=== PATIENT | female | born 1930 | race Caucasian/White ===

== ENCOUNTER 2016-09-12 18:36 | Inpatient (IN) | payer OTHER, MEDICAID ==
--- NOTE | 2016-09-12 19:10 | RAD ---
EXAM: Bilateral Hip X-Ray INDICATION: Hip pain COMPARISION: No priors TECHNIQUE: Two views of the hips were obtained with hips in neutral and frog-leg position FINDINGS: There is a comminuted impacted fracture of the intertrochanteric region of the right femur. The shaf t of the femur is superiorly migrated creating an approximately 90 angulation between the neck and shaft of the femur. There is an intra medullary gayatri and dynamic screw in the proximal left femur. No left femoral fracture is identified. No dislocation. No acute pelvic fracture can be identified how ever the bones are osteopenic and evaluation is limited. IMPRESSION: 1: There is a comminuted intertrochanteric fracture of the right femur as described above. Reported By:
[2016-09-12 19:39] LABS: BASOPHILS # (AUTO) 0.1 X10^3/uL (0.0-0.1); BASOPHILS % (AUTO) 0.5 % (0.2-1.0); EOSINOPHILS % (AUTO) 0.1 % (0.9-2.9); HEMATOCRIT 33.9 % (36.0-47.0); HEMOGLOBIN 10.7 g/dL (12.0-16.0); LYMPHOCYTES # (AUTO) 1.1 X10^3/uL (1.3-2.9); LYMPHOCYTES % (AUTO) 6.2 % (21.0-51.0); MEAN CORPUSCULAR HEMOGLOBIN 29.3 pg (27.0-34.0); MEAN CORPUSCULAR HGB CONC 31.6 g/dL (33.0-35.0); MEAN CORPUSCULAR VOLUME 92.8 fL (80.0-100.0); MEAN PLATELET VOLUME 8.8 fL (7.4-11.0); MONOCYTES # (AUTO) 0.6 x10^3/uL (0.3-0.8); MONOCYTES % (AUTO) 3.6 % (0.0-13.0); NEUTROPHILS # (AUTO) 16.2 x10^3/uL (2.2-4.8); NEUTROPHILS % (AUTO) 89.6 % (42.0-75.0); PLATELET COUNT 219 X10^3/uL (150.0-450.0); RED BLOOD COUNT 3.65 X10^6/uL (3.5-5.4); RED CELL DISTRIBUTION WIDTH 13.8 % (11.6-16.5)
[2016-09-12] MEDS: MORPHINE SULFATE INJ 4 MG IVP PRN (19:40)
[2016-09-12 19:49] LABS: CALCIUM 8.4 mg/dL (8.5-10.1); CARBON DIOXIDE 30.1 mmol/L (21-32); COR CA(FOR HYPOALB) 9.2 mg/dL (8.5-10.1); CREATININE 1.25 mg/dL (0.55-1.02); TOTAL PROTEIN 6.8 g/dL (6.4-8.2)
[2016-09-12 20:19] LABS: BAND NEUTROPHILS % 4 % (0-10); PLATELET MORPHOLOGY COMMENT NORMAL (NORMAL)
--- NOTE | 2016-09-12 20:53 | RAD ---
HISTORY: Preop for hip surgery Study: Portable AP chest Comparison: None Findings: The heart is normal. The pulmonary vessels are normal. The lungs are mildly hyperinflated. No consol idation or effusion is seen. There is no pulmonary nodule or mass. There are postop changes along th e left shoulder. IMPRESSION: No acute cardiopulmonary abnormality seen. Reported By:
[2016-09-12] MEDS: NS 1000 ML 1,000 ML IV SCH (21:13)
[2016-09-12 22:50] LABS: BILIRUBIN,URINE NEGATIVE (NEGATIVE); BLOOD/HEMOGLOBIN,URINE 3+ (NEGATIVE); GLUCOSE, URINE NEGATIVE (NEGATIVE); KETONES,URINE NEGATIVE (NEGATIVE); LEUKOCYTE ESTERASE ,URINE 1+ (NEGATIVE); NITRITES,URINE POSITIVE (NEGATIVE); PROTEIN,URINE 1+ (NEGATIVE); UROBILINOGEN,URINE NORMAL (NORMAL)
[2016-09-12] MEDS: M.S. CONTIN 30 MG EXTENDED RELEASE PO SCH (22:56)
[2016-09-12 22:59] LABS: APPEARANCE,URINE CLOUDY (CLEAR); BACTERIA,URINE 2+ /HPF (NEGATIVE); COLOR,URINE YELLOW (YELLOW); RBC,URINE 0-3 /HPF (NEGATIVE); SQUAMOUS EPITHELIAL CELL,UR RARE /HPF (NEGATIVE)
[2016-09-12] MEDS ORDERED: HumuLIN R SC PRN (23:53)
[2016-09-13] MEDS: MORPHINE SULFATE INJ 4 MG IVP PRN ×3 (04:49→19:37)
[2016-09-13] MEDS ORDERED: [UNRECOGNIZED DRUG - OTHER] PO PRN (08:35)
[2016-09-13] MEDS ORDERED: [UNRECOGNIZED DRUG - OTHER] PO PRN (08:35)
[2016-09-13] MEDS ORDERED: TYLENOL SUPP 650 MG RECTAL PRN (08:35)
[2016-09-13] MEDS ORDERED: ZOFRAN TAB 4 MG PO PRN (08:35)
[2016-09-13] MEDS: M.S. CONTIN 30 MG EXTENDED RELEASE PO SCH ×2 (08:59→21:04)
[2016-09-13] MEDS ORDERED: [UNRECOGNIZED DRUG - OTHER] PO SCH (09:00)
[2016-09-13] MEDS ORDERED: [UNRECOGNIZED DRUG - OTHER] PO SCH (09:00)
[2016-09-13] MEDS ORDERED: [UNRECOGNIZED DRUG - OTHER] PO SCH (09:00)
[2016-09-13] MEDS ORDERED: PriLOSEC PO SCH (09:00)
--- NOTE | 2016-09-13 09:01 | DR.CONSULT ---
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, Joint Replacement, Ortho Surgery - Family History Family Medical History: Diabetes Mellitus, Cancer, [place], Coronary Artery Disease, Heart Failure, Sudden Cardiac , Hypertension - Social History Does patient currently use any type of tobacco product: No Have you used tobacco products in the last 12 months: No Type of Tobacco Use: None Alcohol Use: None Drug Use: None - Medications Home Medications: Acetaminophen [TYLENOL SUPPOSITORY 650 MG *] 1 supp.rect RECTAL Q4HR PRN [History Confirmed 09/12/16] Atropine Sulfate (Ophthalmic) [Atropine Sulfate] 1 drop SL NEEDED PRN [History Confirmed 09/12/16] Citalopram 20 mg Tab [CELEXA 20 MG *] 1 tab PO QAM 09/12/16 [History Confirmed 09/12/16] Diphenhydramine HCl [Benadryl Cap/Tab 25 mg] 1 tab PO Q6HR PRN 09/12/16 [ History Confirmed 09/12/16] Folic Acid [FOLIC ACID TAB 1 MG *] 1 tab PO QAM 09/12/16 [History Confirmed 11/22] Glipizide [Glipizide 5 mg] 0.5 tab PO QAM 09/12/16 [History Confirmed 09/12/16] Levothyroxine Sodium [SYNTHROID 50 mcg *] 1 tab PO QAM 09/12/16 [History Confirmed 09/12/16] Loperamide HCl 1 cap PO Q6HR PRN 09/12/16 [History Confirmed 09/12/16] Loratadine & Pseudoephedrine [Claritin-D 24 Hour 10-240 mg] 1 tab PO QAM [History Confirmed 09/12/16] Metformin HCl [Glucophage] 1 tab PO QAM 09/12/16 [History Confirmed 09/12/16] Morphine Sulfate [Morphine Sulfate ER] 1 tab PO BID 09/12/16 [History Confirmed 09/12/16] Morphine Sulfate [Morphine Sulfate ER] 30 mg PO Q4HR PRN 09/12/16 [History Confirmed 09/13/16] Omeprazole [PRILOSEC 20 MG *] 1 cap PO QAM 09/12/16 [History Confirmed 09/12/16] Ondansetron HCl 1 tab PO Q6HR PRN 09/12/16 [History Confirmed 09/12/16] Promethazine HCl 1 tab PO Q6H PRN 09/12/16 [History Confirmed 09/12/16] Sennosides-Docusate Sodium [Senna-S 8.6-50 mg] 1 tab PO BID 09/12/16 [History Confirmed 09/12/16] - Review of Systems Musculoskeletal: Other (rt hip pain) - Physical Exam Vital Signs: Temperature 98.2 F Pulse Rate [Left Brachial] 76 Respiratory Rate 18 Blood Pressure [Left Arm] 186/80 O2 Sat by Pulse Oximetry 93 Musculoskeletal: Right, Hip, Tender - Plan Plan: ORIF tomorrow AM. Pre op instructions as advised.
[2016-09-13] MEDS ORDERED: GLUCOPHAGE ONE (09:35)
[2016-09-13] MEDS ORDERED: MARCAINE 0.25% WITH EPI IJ ONE (09:36)
[2016-09-13] MEDS ORDERED: KETALAR ONE (09:36)
[2016-09-13] MEDS: GLUCOTROL PO SCH (09:38)
[2016-09-13] MEDS: GLUCOPHAGE PO SCH (09:38)
[2016-09-13] MEDS: FOLIC ACID TAB 1 MG PO SCH (09:38)
[2016-09-13] MEDS: LEVAQUIN PREMIX IV 500 MG 500 MG/100 ML BAG IV SCH (09:38)
[2016-09-13] MEDS: SYNTHROID 50 mcg TAB PO SCH (09:39)
[2016-09-13] MEDS: CELEXA PO SCH (09:46)
[2016-09-13] MEDS ORDERED: NAROPIN EPIDURAL 0.2% 400 MG, NS 250 ML IV 200 ML EPI PRN ×2 (12:00)
[2016-09-13] MEDS ORDERED: Q PUMP EPI ONE (12:00)
--- NOTE | 2016-09-13 12:56 | DR.H&P ---
H&P - History & Physical for Day of: H&P Date: 09/12/16 - Chief Complaint Chief Complaint: RIGHT HIP PAIN - Allergies Allergies/Adverse Reactions: Allergies Allergy/AdvReac Type Severity Reaction Status Date / Time Penicillins Allergy Unknown Verified 09/12/16 19:05 - History of Present Illness History of Present Illness: 86 WF DIRECT ADMIT FROM [facility] AFTER ACCIDENTAL FALL WITH ACUTE ONSET HIP PAIN. PT HAD RIGHT HIP FRACTURE. ADMIT FOR PAIN CONTROL AND ORTHO CONSULT. 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, Joint Replacement, Ortho Surgery - Family History Family Medical History: Diabetes Mellitus, Cancer, [place], Coronary Artery Disease, Heart Failure, Sudden Cardiac , Hypertension - Social History Does patient currently use any type of tobacco product: No Have you used tobacco products in the last 12 months: No Type of Tobacco Use: None Alcohol Use: None Drug Use: None - Medications Home Medications: Acetaminophen [TYLENOL SUPPOSITORY 650 MG *] 1 supp.rect RECTAL Q4HR PRN [History Confirmed 09/12/16] Atropine Sulfate (Ophthalmic) [Atropine Sulfate] 1 drop SL NEEDED PRN [History Confirmed 09/12/16] Citalopram 20 mg Tab [CELEXA 20 MG *] 1 tab PO QAM 09/12/16 [History Confirmed 09/12/16] Diphenhydramine HCl [Benadryl Cap/Tab 25 mg] 1 tab PO Q6HR PRN 09/12/16 [ History Confirmed 09/12/16] Folic Acid [FOLIC ACID TAB 1 MG *] 1 tab PO QAM 09/12/16 [History Confirmed 11/22] Glipizide [Glipizide 5 mg] 0.5 tab PO QAM 09/12/16 [History Confirmed 09/12/16] Levothyroxine Sodium [SYNTHROID 50 mcg *] 1 tab PO QAM 09/12/16 [History Confirmed 09/12/16] Loperamide HCl 1 cap PO Q6HR PRN 09/12/16 [History Confirmed 09/12/16] Loratadine & Pseudoephedrine [Claritin-D 24 Hour 10-240 mg] 1 tab PO QAM [History Confirmed 09/12/16] Metformin HCl [Glucophage] 1 tab PO QAM 09/12/16 [History Confirmed 09/12/16] Morphine Sulfate [Morphine Sulfate ER] 1 tab PO BID 09/12/16 [History Confirmed 09/12/16] Morphine Sulfate [Morphine Sulfate ER] 30 mg PO Q4HR PRN 09/12/16 [History Confirmed 09/13/16] Omeprazole [PRILOSEC 20 MG *] 1 cap PO QAM 09/12/16 [History Confirmed 09/12/16] Ondansetron HCl 1 tab PO Q6HR PRN 09/12/16 [History Confirmed 09/12/16] Promethazine HCl 1 tab PO Q6H PRN 09/12/16 [History Confirmed 09/12/16] Sennosides-Docusate Sodium [Senna-S 8.6-50 mg] 1 tab PO BID 09/12/16 [History Confirmed 09/12/16] - Review of Systems Constitutional: No Symptoms Reported Eyes: No Symptoms Reported ENT: No Symptoms Reported Respiratory: No Symptoms Reported Cardiovascular: No Symptoms Reported Gastrointestinal: No Symptoms Reported Genitourinary: No Symptoms Reported Musculoskeletal: Leg Pain, Other (RIGHT HIP PAIN) Skin: No Symptoms Reported Neurological: No Symptoms Reported - Physical Exam Vital Signs: Temperature 98.5 F Pulse Rate [Right Brachial] 80 Pulse Rate [Left Brachial] 76 Respiratory Rate 18 Blood Pressure [Right Arm] 119/112 Blood Pressure [Left Arm] 186/80 O2 Sat by Pulse Oximetry 94 Oriented: Normal Eyes: Normal Ear: Normal Nose: Normal Throat: Normal Respiratory: Clear Throughout Cardiovascular: Normal : Normal Auscultation: Bowel Sounds: Normal Palpation: Normal Tenderness: Normal Skin: Bruising (RIGHT THIGH, RIGHT HIP) Musculoskeletal: Hip (RIGHT THIGH) Psychiatric: Normal Mood Description: Calm Affect: Angry Speech Pattern: Clear - Assessment/Plan (1) Closed right hip fracture Qualifiers: Encounter type: E Fracture healing: F Status: Acute Plan: ORTHO CONSULT, PAIN CONTROL (2) CHF (congestive heart failure) Qualifiers: Congestive heart failure type: C Congestive heart failure chronicity: C Status: Chronic Plan: CXR ON ADMISSION, EKG. BP AND I & OS (3) Dementia Qualifiers: Dementia type: D Alzheimer's disease onset: A Dementia behavioral disturbance: D Status: Chronic Plan: STABLE (4) Diabetes mellitus, type II Qualifiers: Diabetes mellitus complication status: D Diabetes mellitus complication detail: D Diabetic retinopathy severity: D Proliferative retinopathy type: P Diabetes mellitus macular edema: D Diabetes mellitus correction insulin use : D Laterality: L Chronic kidney disease stage: C Status: Chronic (5) GERD (gastroesophageal reflux disease) Qualifiers: Esophagitis presence: E Status: Chronic Plan: PPI (6) Osteoarthritis Qualifiers: Osteoarthritis location: O Osteoarthritis type: O Spinal region: S Spinal osteoarthritis complication: S Laterality: L Status: Chronic Plan: PAIN CONTROL
--- NOTE | 2016-09-13 13:11 | PCM.PROG ---
Progress Note - Progress Note for Day of Date: 09/13/16 - Subjective Subjective: 86 F ADMITTED ON 09/12/16 WITH RIGHT HIP FRACTURE. DR THOMSON CONSULTING. CONTINUE PAIN CONTROL, SURGERY PLANNED FOR TUESDAY - Past Medical Family Social History Past Med/Fam/Surg Hx: No changes since H&P Allergies: Allergies Penicillins Allergy (Unknown, Verified 09/12/16 19:05) - Review of Systems ROS: No change since H&P - Vital Signs and I&O's Vital Signs: Temperature 98.5 F Pulse Rate [Right Brachial] 80 Pulse Rate [Left Brachial] 76 Respiratory Rate 18 Blood Pressure [Right Arm] 119/112 Blood Pressure [Left Arm] 186/80 O2 Sat by Pulse Oximetry 94 Intake and Output: Intake & Output 09/11/16 09/12/16 09/13/16 09/14/16 11:59 11:59 11:59 11:59 Intake Total 200 Output Total 475 Balance -275 - Physical Exam Oriented: Normal Eyes: Normal Ear: Normal Nose: Normal Throat: Normal Respiratory: Normal Cardiovascular: Normal : Normal Auscultation: Bowel Sounds: Normal Tenderness: Normal Skin: Bruising (RIGHT THIGH, RIGHT HIP) Musculoskeletal: Hip (RIGHT THIGH) Psychiatric: Normal Mood Description: Calm Affect: Angry Speech Pattern: Clear - Laboratory and Diagnostics Result Diagrams: 09/12/16 19:20 09/12/16 19:20 Labs: 09/12/16 22:41 Urine,Catheterized Urine Culture - Preliminary Laboratory WBC 18.0 X10^3/uL (3.6-10.0) H 09/12/16 19:20 RBC 3.65 X10^6/uL (3.5-5.4) 09/12/16 19:20 Hgb 10.7 g/dL (12.0-16.0) L 09/12/16 19:20 Hct 33.9 % (36.0-47.0) L 09/12/16 19:20 MCV 92.8 fL (80.0-100.0) 09/12/16 19:20 MCH 29.3 pg (27.0-34.0) 09/12/16 19:20 MCHC 31.6 g/dL (33.0-35.0) L 09/12/16 19:20 RDW 13.8 % (11.6-16.5) 09/12/16 19:20 Plt Count 219 X10^3/uL (150.0-450.0) 09/12/16 19:20 Plt Count Comment Adequate (ADEQUATE) 09/12/16 19:20 MPV 8.8 fL (7.4-11.0) 09/12/16 19:20 Neut % 89.6 % (42.0-75.0) H 09/12/16 19:20 Lymph % 6.2 % (21.0-51.0) L 09/12/16 19:20 [place] % 3.6 % (0.0-13.0) 09/12/16 19:20 Eos % 0.1 % (0.9-2.9) L 09/12/16 19:20 Baso % 0.5 % (0.2-1.0) 09/12/16 19:20 Neut # 16.2 x10^3/uL (2.2-4.8) H 09/12/16 19:20 Lymph # 1.1 X10^3/uL (1.3-2.9) L 09/12/16 19:20 [place] # 0.6 x10^3/uL (0.3-0.8) 09/12/16 19:20 Eos # 0.0 x10^3/uL (0.0-0.2) 09/12/16 19:20 Baso # 0.1 X10^3/uL (0.0-0.1) 09/12/16 19:20 Absolute Nucleated RBC 0.0 /100WBC 09/12/16 19:20 Total Counted 100 09/12/16 19:20 Neutrophils % (Manual) 86 % (39-76) H 09/12/16 19:20 Band Neutrophils % 4 % (0-10) 09/12/16 19:20 Lymphocytes % (Manual) 7 % (13-43) L 09/12/16 19:20 Monocytes % (Manual) 2 % (4-9) L 09/12/16 19:20 Eosinophils % (Manual) 1 % (0-6) 09/12/16 19:20 Plt Morphology Comment Normal (NORMAL) 09/12/16 19:20 RBC Morphology Normal (NORMAL) 09/12/16 19:20 INR Target Range - 09/12/16 19:20 INR 0.99 (0.8-1.3) 09/12/16 19:20 PTT 28.5 SECONDS (22.9-36.5) 09/12/16 19:20 PTT Comment - 09/12/16 19:20 Sodium 142 mmol/L (136-145) 09/12/16 19:20 Corrected Sodium 143 mmol/L (136-145) 09/12/16 19:20 Potassium 4.7 mmol/L (3.5-5.1) 09/12/16 19:20 Chloride 104 mmol/L (98-107) 09/12/16 19:20 Carbon Dioxide 30.1 mmol/L (21-32) 09/12/16 19:20 BUN 15 mg/dL (7-18) 09/12/16 19:20 Creatinine 1.25 mg/dL (0.55-1.02) H 09/12/16 19:20 Est GFR (MDRD) Af Amer 52 (>60) L 09/12/16 19:20 Est GFR (MDRD) Non-Af 43 (>60) L 09/12/16 19:20 Glucose 154 mg/dL (65-99) H 09/12/16 19:20 Calcium 8.4 mg/dL (8.5-10.1) L 09/12/16 19:20 Corrected Calcium 9.2 mg/dL (8.5-10.1) 09/12/16 19:20 Total Bilirubin 0.20 mg/dL (0.2-1.0) 09/12/16 19:20 AST 16 Units/L (15-37) 09/12/16 19:20 ALT 14 Units/L (12-78) 09/12/16 19:20 Alkaline Phosphatase 109 Units/L (46-116) 09/12/16 19:20 Total Protein 6.8 g/dL (6.4-8.2) 09/12/16 19:20 Albumin 3.0 g/dL (3.4-5.0) L 09/12/16 19:20 Globulin 3.8 g/dL (2.5-4.5) 09/12/16 19:20 Albumin/Globulin Ratio 0.8 Ratio (1.1-2.1) L 09/12/16 19:20 Specimen Type Catherized urine 09/12/16 22:41 Urine Color Yellow (YELLOW) 09/12/16 22:41 Urine Appearance Cloudy (CLEAR) 09/12/16 22:41 Urine pH 7.0 (5.0 - 8.0) 09/12/16 22:41 Ur Specific [place] 1.010 (1.000-1.030) 09/12/16 22:41 Urine Protein 1+ (NEGATIVE) 09/12/16 22:41 Urine Glucose (UA) Negative (NEGATIVE) 09/12/16 22:41 Urine Ketones Negative (NEGATIVE) 09/12/16 22:41 Urine Occult Blood 3+ (NEGATIVE) 09/12/16 22:41 Urine Nitrite Positive (NEGATIVE) 09/12/16 22:41 Urine Bilirubin Negative (NEGATIVE) 09/12/16 22:41 Urine Urobilinogen Normal (NORMAL) 09/12/16 22:41 Ur Leukocyte Esterase 1+ (NEGATIVE) 09/12/16 22:41 Urine RBC 0-3 /HPF (NEGATIVE) 09/12/16 22:41 Urine WBC 6-8 /HPF (NEGATIVE) 09/12/16 22:41 Ur Squamous Epith Cells Rare /HPF (NEGATIVE) 09/12/16 22:41 Urine Bacteria 2+ /HPF (NEGATIVE) 09/12/16 22:41 Ur Culture Indicated? Yes/culture set up 09/12/16 22:41 Blood Type B POSITIVE 09/12/16 19:45 Antibody Screen Negative 09/12/16 19:45 Crossmatch See Detail 09/12/16 19:45 - Plan (1) Closed right hip fracture Status: Acute Qualifiers: Encounter type: E Fracture healing: F Plan: ORTHO CONSULT, PAIN CONTROL (2) CHF (congestive heart failure) Status: Chronic Qualifiers: Congestive heart failure type: C Congestive heart failure chronicity: C Plan: CXR ON ADMISSION, EKG. 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
[2016-09-13] MEDS: PROTONIX INJ 40 MG VIAL IVP SCH (15:20)
[2016-09-13] MEDS ORDERED: NS 250 ML IV 250 ML IV ONE (15:59)
[2016-09-13] MEDS: SENOKOT PO SCH (21:03)
[2016-09-13] MEDS: COLACE CAP 100 MG PO SCH (21:03)
[2016-09-13] MEDS: SNACK - Diabetic Appropriate PO SCH (21:05)
[2016-09-13] MEDS: NS 1000 ML 1,000 ML IV SCH (21:06)
[2016-09-14] MEDS: MORPHINE SULFATE INJ 4 MG IVP PRN ×3 (04:18→17:05)
[2016-09-14] MEDS: NS 1000 ML 1,000 ML IV SCH ×2 (04:21→21:43)
[2016-09-14 05:45] LABS: ALANINE AMINOTRANSFERASE 14 Units/L (12-78); ALBUMIN 2.5 g/dL (3.4-5.0); ALKALINE PHOSPHATASE 88 Units/L (46-116); ASPARTATE AMINO TRANSFERASE 15 Units/L (15-37); BLOOD UREA NITROGEN 17 mg/dL (7-18); CALCIUM 8.2 mg/dL (8.5-10.1); CARBON DIOXIDE 27.2 mmol/L (21-32); CHLORIDE 106 mmol/L (98-107); COR CA(FOR HYPOALB) 9.4 mg/dL (8.5-10.1); CREATININE 1.08 mg/dL (0.55-1.02); GLUCOSE 96 mg/dL (65-99); SODIUM 141 mmol/L (136-145); eGFR BLACK RACES > 60 (>60); eGFR NON BLACK RACES 51 (>60)
[2016-09-14 06:14] LABS: BASOPHILS % (AUTO) 0.2 % (0.2-1.0); EOSINOPHILS % (AUTO) 0.1 % (0.9-2.9); HEMATOCRIT 31.5 % (36.0-47.0); HEMOGLOBIN 10.3 g/dL (12.0-16.0); LYMPHOCYTES # (AUTO) 2.2 X10^3/uL (1.3-2.9); MEAN CORPUSCULAR HEMOGLOBIN 29.4 pg (27.0-34.0); MEAN CORPUSCULAR HGB CONC 32.6 g/dL (33.0-35.0); MEAN CORPUSCULAR VOLUME 90.2 fL (80.0-100.0); MEAN PLATELET VOLUME 7.8 fL (7.4-11.0); MONOCYTES # (AUTO) 1.3 x10^3/uL (0.3-0.8); MONOCYTES % (AUTO) 10.6 % (0.0-13.0); NEUTROPHILS # (AUTO) 8.7 x10^3/uL (2.2-4.8); NEUTROPHILS % (AUTO) 71.1 % (42.0-75.0); PLATELET COUNT 209 X10^3/uL (150.0-450.0); RED BLOOD COUNT 3.49 X10^6/uL (3.5-5.4); RED CELL DISTRIBUTION WIDTH 14.1 % (11.6-16.5); WHITE BLOOD COUNT 12.2 X10^3/uL (3.6-10.0)
[2016-09-14] MEDS ORDERED: BACTROBAN OINT ONE (07:30)
[2016-09-14] MEDS ORDERED: NS 50 ML IV + SPIKE MINIBAG* 50 ML IV ONE (07:42)
[2016-09-14] MEDS ORDERED: ANCEF VIAL 1 GM ONE (07:42)
[2016-09-14] MEDS ORDERED: LR 1000 ML IV 1,000 ML IV ONE (07:42)
[2016-09-14] MEDS ORDERED: FENTANYL INJ 250 mcg ONE (08:06)
[2016-09-14] MEDS ORDERED: NS IRRIGATION 1000 ML 1,000 ML with BACITRACIN VIAL 50,000 UNT IR ONE ×2 (09:15)
[2016-09-14 09:39] VITALS: BMI 16.2
[2016-09-14] MEDS ORDERED: BENADRYL INJ 50 MG VIAL IVP PRN (10:32)
[2016-09-14] MEDS ORDERED: PHENERGAN INJ 25 MG IVP PRN (10:32)
[2016-09-14] MEDS ORDERED: REGLAN INJ 10 MG VIAL IVP PRN (10:32)
[2016-09-14] MEDS ORDERED: ZOFRAN INJ 4 MG VIAL IVP PRN (10:32)
[2016-09-14] MEDS ORDERED: APRESOLINE INJ 20 MG VIAL IVP ONE ×2 (10:46→13:09)
[2016-09-14] MEDS ORDERED: APRESOLINE INJ 20 MG VIAL ONE (10:52)
[2016-09-14] MEDS: DILAUDID INJ IVP PRN ×5 (11:20→11:45)
[2016-09-14] MEDS ORDERED: DILAUDID INJ ONE (11:21)
--- NOTE | 2016-09-14 12:03 | PCM.PROG ---
Progress Note - Progress Note for Day of Date: 09/14/16 - Subjective Subjective: 86 F ADMITTED ON 09/12/16 WITH RIGHT HIP FRACTURE. DR THOMSON CONSULTING. CONTINUE PAIN CONTROL, SURGERY PLANNED THIS MORNING. PT NPO - Past Medical Family Social History Past Med/Fam/Surg Hx: No changes since H&P Allergies: Allergies Penicillins Allergy (Unknown, Verified 09/12/16 19:05) - Review of Systems ROS: No change since H&P - Vital Signs and I&O's Vital Signs: Temperature 97.9 F Pulse Rate [Right Brachial] 70 Pulse Rate [Left Brachial] 64 Pulse Rate 73 Respiratory Rate 17 Blood Pressure [Right Arm] 119/112 Blood Pressure [Left Arm] 188/74 Blood Pressure 188/80 O2 Sat by Pulse Oximetry 99 Intake and Output: Intake & Output 09/12/16 09/13/16 09/14/16 09/15/16 11:59 11:59 11:59 11:59 Intake Total 200 1248 Output Total 475 2400 Balance -275 -1152 - Physical Exam Oriented: Normal Eyes: Normal Ear: Normal Nose: Normal Throat: Normal Respiratory: Normal Cardiovascular: Normal : Normal Auscultation: Bowel Sounds: Normal Tenderness: Normal Skin: Bruising (RIGHT THIGH, RIGHT HIP) Musculoskeletal: Hip (RIGHT THIGH) Psychiatric: Normal Mood Description: Calm Affect: Angry Speech Pattern: Clear, Appropriate - Laboratory and Diagnostics Result Diagrams: 09/14/16 04:37 09/14/16 04:37 Labs: 09/12/16 22:41 Urine,Catheterized Urine Culture - Preliminary Laboratory WBC 12.2 X10^3/uL (3.6-10.0) H 09/14/16 04:37 RBC 3.49 X10^6/uL (3.5-5.4) L 09/14/16 04:37 Hgb 10.3 g/dL (12.0-16.0) L 09/14/16 04:37 Hct 31.5 % (36.0-47.0) L 09/14/16 04:37 MCV 90.2 fL (80.0-100.0) 09/14/16 04:37 MCH 29.4 pg (27.0-34.0) 09/14/16 04:37 MCHC 32.6 g/dL (33.0-35.0) L 09/14/16 04:37 RDW 14.1 % (11.6-16.5) 09/14/16 04:37 Plt Count 209 X10^3/uL (150.0-450.0) 09/14/16 04:37 Plt Count Comment Adequate (ADEQUATE) 09/12/16 19:20 MPV 7.8 fL (7.4-11.0) 09/14/16 04:37 Neut % 71.1 % (42.0-75.0) 09/14/16 04:37 Lymph % 18.0 % (21.0-51.0) L 09/14/16 04:37 [place] % 10.6 % (0.0-13.0) 09/14/16 04:37 Eos % 0.1 % (0.9-2.9) L 09/14/16 04:37 Baso % 0.2 % (0.2-1.0) 09/14/16 04:37 Neut # 8.7 x10^3/uL (2.2-4.8) H 09/14/16 04:37 Lymph # 2.2 X10^3/uL (1.3-2.9) 09/14/16 04:37 [place] # 1.3 x10^3/uL (0.3-0.8) H 09/14/16 04:37 Eos # 0.0 x10^3/uL (0.0-0.2) 09/14/16 04:37 Baso # 0.0 X10^3/uL (0.0-0.1) 09/14/16 04:37 Absolute Nucleated RBC 0.0 /100WBC 09/14/16 04:37 Total Counted 100 09/12/16 19:20 Neutrophils % (Manual) 86 % (39-76) H 09/12/16 19:20 Band Neutrophils % 4 % (0-10) 09/12/16 19:20 Lymphocytes % (Manual) 7 % (13-43) L 09/12/16 19:20 Monocytes % (Manual) 2 % (4-9) L 09/12/16 19:20 Eosinophils % (Manual) 1 % (0-6) 09/12/16 19:20 Plt Morphology Comment Normal (NORMAL) 09/12/16 19:20 RBC Morphology Normal (NORMAL) 09/12/16 19:20 INR Target Range - 09/12/16 19:20 INR 0.99 (0.8-1.3) 09/12/16 19:20 PTT 28.5 SECONDS (22.9-36.5) 09/12/16 19:20 PTT Comment - 09/12/16 19:20 Sodium 141 mmol/L (136-145) 09/14/16 04:37 Corrected Sodium TNP 09/14/16 04:37 Potassium 4.5 mmol/L (3.5-5.1) 09/14/16 04:37 Chloride 106 mmol/L (98-107) 09/14/16 04:37 Carbon Dioxide 27.2 mmol/L (21-32) 09/14/16 04:37 BUN 17 mg/dL (7-18) 09/14/16 04:37 Creatinine 1.08 mg/dL (0.55-1.02) H 09/14/16 04:37 Est GFR (MDRD) Af Amer > 60 (>60) 09/14/16 04:37 Est GFR (MDRD) Non-Af 51 (>60) L 09/14/16 04:37 Glucose 96 mg/dL (65-99) 09/14/16 04:37 Calcium 8.2 mg/dL (8.5-10.1) L 09/14/16 04:37 Corrected Calcium 9.4 mg/dL (8.5-10.1) 09/14/16 04:37 Total Bilirubin 0.70 mg/dL (0.2-1.0) 09/14/16 04:37 AST 15 Units/L (15-37) 09/14/16 04:37 ALT 14 Units/L (12-78) 09/14/16 04:37 Alkaline Phosphatase 88 Units/L (46-116) 09/14/16 04:37 Total Protein 6.0 g/dL (6.4-8.2) L 09/14/16 04:37 Albumin 2.5 g/dL (3.4-5.0) L 09/14/16 04:37 Globulin 3.5 g/dL (2.5-4.5) 09/14/16 04:37 Albumin/Globulin Ratio 0.7 Ratio (1.1-2.1) L 09/14/16 04:37 Specimen Type Catherized urine 09/12/16 22:41 Urine Color Yellow (YELLOW) 09/12/16 22:41 Urine Appearance Cloudy (CLEAR) 09/12/16 22:41 Urine pH 7.0 (5.0 - 8.0) 09/12/16 22:41 Ur Specific [place] 1.010 (1.000-1.030) 09/12/16 22:41 Urine Protein 1+ (NEGATIVE) 09/12/16 22:41 Urine Glucose (UA) Negative (NEGATIVE) 09/12/16 22:41 Urine Ketones Negative (NEGATIVE) 09/12/16 22:41 Urine Occult Blood 3+ (NEGATIVE) 09/12/16 22:41 Urine Nitrite Positive (NEGATIVE) 09/12/16 22:41 Urine Bilirubin Negative (NEGATIVE) 09/12/16 22:41 Urine Urobilinogen Normal (NORMAL) 09/12/16 22:41 Ur Leukocyte Esterase 1+ (NEGATIVE) 09/12/16 22:41 Urine RBC 0-3 /HPF (NEGATIVE) 09/12/16 22:41 Urine WBC 6-8 /HPF (NEGATIVE) 09/12/16 22:41 Ur Squamous Epith Cells Rare /HPF (NEGATIVE) 09/12/16 22:41 Urine Bacteria 2+ /HPF (NEGATIVE) 09/12/16 22:41 Ur Culture Indicated? Yes/culture set up 09/12/16 22:41 Staph aureus (PCR) Negative (NEGATIVE) 09/13/16 11:10 MRSA (PCR) Negative (NEGATIVE) 09/13/16 11:10 Blood Type B POSITIVE 09/12/16 19:45 Antibody Screen Negative 09/12/16 19:45 Crossmatch See Detail 09/12/16 19:45 - Plan (1) Closed right hip fracture Status: Acute Qualifiers: Encounter type: E Fracture healing: F Plan: ORTHO CONSULT, PAIN CONTROL (2) CHF (congestive heart failure) Status: Chronic Qualifiers: Congestive heart failure type: C Congestive heart failure chronicity: C Plan: CXR ON ADMISSION, EKG. 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
--- NOTE | 2016-09-14 12:31 | RAD ---
HISTORY: Right hip fracture status post ORIF Study: Right hip two view Comparison: September 12, 2016 Findings: The patient is immediately status by open reduction internal fixation of a comminuted inter trochant carlos fracture. Position and alignment is nearly anatomic. The pelvic bones and SI joints are intact. Osteopenia is present. IMPRESSION: Status post successful open reduction, internal fixation inter trochanteric fracture with near anato batsheva alignment Osteopenia Reported By:
[2016-09-14] MEDS: PROTONIX INJ 40 MG VIAL IVP SCH (12:42)
[2016-09-14] MEDS: LEVAQUIN PREMIX IV 500 MG 500 MG/100 ML BAG IV SCH (12:42)
[2016-09-14] MEDS ORDERED: DILAUDID INJ IVP ONE (13:10)
[2016-09-14] MEDS ORDERED: GLUCOPHAGE ONE (13:13)
[2016-09-14] MEDS: CELEXA PO SCH (13:22)
[2016-09-14] MEDS: SYNTHROID 50 mcg TAB PO SCH (13:23)
[2016-09-14] MEDS: M.S. CONTIN 30 MG EXTENDED RELEASE PO SCH ×2 (13:23→20:49)
[2016-09-14] MEDS: GLUCOPHAGE PO SCH (13:23)
[2016-09-14] MEDS: GLUCOTROL PO SCH (13:23)
[2016-09-14] MEDS ORDERED: ULTANE GAS IN ONE (15:41)
[2016-09-14] MEDS ORDERED: NORCURON INJ 10 MG VIAL ONE (15:41)
[2016-09-14] MEDS ORDERED: NEOSTIGMINE INJ ONE (15:41)
[2016-09-14] MEDS ORDERED: DIPRIVAN VIAL ONE (15:41)
[2016-09-14] MEDS ORDERED: ROBINUL ONE (15:41)
[2016-09-14] MEDS ORDERED: EPHEDRINE SULFATE INJ ONE (15:41)
[2016-09-14] MEDS: FOLIC ACID TAB 1 MG PO SCH (15:53)
[2016-09-14] MEDS: COLACE CAP 100 MG PO SCH ×2 (15:53→20:50)
[2016-09-14] MEDS: TAB-A-VITE PO SCH (15:54)
[2016-09-14] MEDS: SENOKOT PO SCH ×2 (15:54→20:50)
[2016-09-14] MEDS: SNACK - Diabetic Appropriate PO SCH (20:50)
[2016-09-15] MEDS: MORPHINE SULFATE INJ 4 MG IVP PRN ×3 (02:26→15:25)
[2016-09-15] MEDS ORDERED: ZOFRAN INJ 4 MG VIAL ONE (02:54)
[2016-09-15] MEDS ORDERED: ZOFRAN INJ 4 MG VIAL IVP PRN (02:57)
[2016-09-15] MEDS ORDERED: DILAUDID INJ IVP ONE (03:33)
[2016-09-15 05:04] LABS: CALCIUM 7.9 mg/dL (8.5-10.1); CARBON DIOXIDE 26.7 mmol/L (21-32); CREATININE 1.12 mg/dL (0.55-1.02)
[2016-09-15 06:11] LABS: BASOPHILS % (AUTO) 0.2 % (0.2-1.0); EOSINOPHILS % (AUTO) 0.1 % (0.9-2.9); HEMATOCRIT 27.5 % (36.0-47.0); HEMOGLOBIN 9.1 g/dL (12.0-16.0); LYMPHOCYTES % (AUTO) 9.2 % (21.0-51.0); MEAN CORPUSCULAR HEMOGLOBIN 30.2 pg (27.0-34.0); MEAN CORPUSCULAR HGB CONC 33.2 g/dL (33.0-35.0); MEAN CORPUSCULAR VOLUME 90.8 fL (80.0-100.0); MEAN PLATELET VOLUME 7.7 fL (7.4-11.0); MONOCYTES # (AUTO) 1.1 x10^3/uL (0.3-0.8); MONOCYTES % (AUTO) 10.1 % (0.0-13.0); NEUTROPHILS # (AUTO) 9.1 x10^3/uL (2.2-4.8); NEUTROPHILS % (AUTO) 80.4 % (42.0-75.0); PLATELET COUNT 216 X10^3/uL (150.0-450.0); RED BLOOD COUNT 3.03 X10^6/uL (3.5-5.4); RED CELL DISTRIBUTION WIDTH 13.9 % (11.6-16.5); WHITE BLOOD COUNT 11.4 X10^3/uL (3.6-10.0)
[2016-09-15] MEDS ORDERED: GLUCOPHAGE ONE (08:32)
[2016-09-15] MEDS: M.S. CONTIN 30 MG EXTENDED RELEASE PO SCH ×2 (09:40→21:09)
[2016-09-15] MEDS: SYNTHROID 50 mcg TAB PO SCH (09:40)
[2016-09-15] MEDS: LEVAQUIN PREMIX IV 500 MG 500 MG/100 ML BAG IV SCH (09:40)
[2016-09-15] MEDS: GLUCOTROL PO SCH (09:41)
[2016-09-15] MEDS: CELEXA PO SCH (09:41)
[2016-09-15] MEDS: GLUCOPHAGE PO SCH (09:41)
[2016-09-15] MEDS: TAB-A-VITE PO SCH (09:41)
[2016-09-15] MEDS: PROTONIX INJ 40 MG VIAL IVP SCH (09:41)
[2016-09-15] MEDS: FOLIC ACID TAB 1 MG PO SCH (09:41)
[2016-09-15] MEDS: SENOKOT PO SCH ×2 (09:41→21:10)
[2016-09-15] MEDS: COLACE CAP 100 MG PO SCH ×2 (09:41→21:10)
[2016-09-15] MEDS: LOVENOX INJ 40 MG SYR SC SCH (09:42)
[2016-09-15] MEDS ORDERED: PHARMACY CONSULT - DOSE _____ XX SCH (13:00)
[2016-09-15] MEDS: MERREM VIAL 1,000 MG in NS 100 ML IV 100 ML IV SCH ×2 (13:46→21:11)
--- NOTE | 2016-09-15 18:37 | PCM.PROG ---
Progress Note - Progress Note for Day of Date: 09/15/16 - Subjective Subjective: 86 F ADMITTED ON 09/12/16 WITH RIGHT HIP FRACTURE. ONE DAY POST OP. TOLERATING PAIN WELL. CONTINUE POST OP PLAN OF CARE AND PT, UTI CULTURE + ECOLI , D/C LEVAQUIN STARTED ON MEROPENEM. [facility] - Past Medical Family Social History Past Med/Fam/Surg Hx: No changes since H&P Allergies: Allergies Penicillins Allergy (Unknown, Verified 09/12/16 19:05) - Review of Systems ROS: No change since H&P - Vital Signs and I&O's Vital Signs: Temperature 98.8 F Pulse Rate [Right Brachial] 76 Pulse Rate [Left Brachial] 74 Pulse Rate 88 Respiratory Rate 18 Blood Pressure [Right Arm] 119/112 Blood Pressure [Left Arm] 175/64 Blood Pressure 188/80 O2 Sat by Pulse Oximetry 98 Intake and Output: Intake & Output 09/13/16 09/14/16 09/15/16 09/16/16 11:59 11:59 11:59 11:59 Intake Total 200 1248 832 780 Output Total 475 2400 1000 700 Balance -275 -1152 -168 80 - Physical Exam Oriented: Normal Eyes: Normal Ear: Normal Nose: Normal Throat: Normal Respiratory: Normal Cardiovascular: Normal : Normal Auscultation: Bowel Sounds: Normal Tenderness: Normal Skin: Wound (RIGHT HIP CLEAN INTACT DRESSING), Bruising (RIGHT THIGH, RIGHT HIP) Musculoskeletal: Hip (RIGHT THIGH) Psychiatric: Normal Mood Description: Calm Affect: Angry Speech Pattern: Clear, Appropriate - Laboratory and Diagnostics Result Diagrams: 09/15/16 04:00 09/15/16 04:00 Labs: 09/12/16 22:41 Urine,Catheterized Urine Culture - Final Escherichia Coli Laboratory WBC 11.4 X10^3/uL (3.6-10.0) H 09/15/16 04:00 RBC 3.03 X10^6/uL (3.5-5.4) L 09/15/16 04:00 Hgb 9.1 g/dL (12.0-16.0) L 09/15/16 04:00 Hct 27.5 % (36.0-47.0) L 09/15/16 04:00 MCV 90.8 fL (80.0-100.0) 09/15/16 04:00 MCH 30.2 pg (27.0-34.0) 09/15/16 04:00 MCHC 33.2 g/dL (33.0-35.0) 09/15/16 04:00 RDW 13.9 % (11.6-16.5) 09/15/16 04:00 Plt Count 216 X10^3/uL (150.0-450.0) 09/15/16 04:00 Plt Count Comment Adequate (ADEQUATE) 09/12/16 19:20 MPV 7.7 fL (7.4-11.0) 09/15/16 04:00 Neut % 80.4 % (42.0-75.0) H 09/15/16 04:00 Lymph % 9.2 % (21.0-51.0) L 09/15/16 04:00 [place] % 10.1 % (0.0-13.0) 09/15/16 04:00 Eos % 0.1 % (0.9-2.9) L 09/15/16 04:00 Baso % 0.2 % (0.2-1.0) 09/15/16 04:00 Neut # 9.1 x10^3/uL (2.2-4.8) H 09/15/16 04:00 Lymph # 1.0 X10^3/uL (1.3-2.9) L 09/15/16 04:00 [place] # 1.1 x10^3/uL (0.3-0.8) H 09/15/16 04:00 Eos # 0.0 x10^3/uL (0.0-0.2) 09/15/16 04:00 Baso # 0.0 X10^3/uL (0.0-0.1) 09/15/16 04:00 Absolute Nucleated RBC 0.0 /100WBC 09/15/16 04:00 Total Counted 100 09/12/16 19:20 Neutrophils % (Manual) 86 % (39-76) H 09/12/16 19:20 Band Neutrophils % 4 % (0-10) 09/12/16 19:20 Lymphocytes % (Manual) 7 % (13-43) L 09/12/16 19:20 Monocytes % (Manual) 2 % (4-9) L 09/12/16 19:20 Eosinophils % (Manual) 1 % (0-6) 09/12/16 19:20 Plt Morphology Comment Normal (NORMAL) 09/12/16 19:20 RBC Morphology Normal (NORMAL) 09/12/16 19:20 INR Target Range - 09/12/16 19:20 INR 0.99 (0.8-1.3) 09/12/16 19:20 PTT 28.5 SECONDS (22.9-36.5) 09/12/16 19:20 PTT Comment - 09/12/16 19:20 Sodium 138 mmol/L (136-145) 09/15/16 04:00 Corrected Sodium 138 mmol/L (136-145) 09/15/16 04:00 Potassium 3.9 mmol/L (3.5-5.1) 09/15/16 04:00 Chloride 102 mmol/L (98-107) 09/15/16 04:00 Carbon Dioxide 26.7 mmol/L (21-32) 09/15/16 04:00 BUN 17 mg/dL (7-18) 09/15/16 04:00 Creatinine 1.12 mg/dL (0.55-1.02) H 09/15/16 04:00 Est GFR (MDRD) Af Amer 59 (>60) 09/15/16 04:00 Est GFR (MDRD) Non-Af 49 (>60) L 09/15/16 04:00 Glucose 111 mg/dL (65-99) H 09/15/16 04:00 Calcium 7.9 mg/dL (8.5-10.1) L 09/15/16 04:00 Corrected Calcium 9.4 mg/dL (8.5-10.1) 09/14/16 04:37 Total Bilirubin 0.70 mg/dL (0.2-1.0) 09/14/16 04:37 AST 15 Units/L (15-37) 09/14/16 04:37 ALT 14 Units/L (12-78) 09/14/16 04:37 Alkaline Phosphatase 88 Units/L (46-116) 09/14/16 04:37 Total Protein 6.0 g/dL (6.4-8.2) L 09/14/16 04:37 Albumin 2.5 g/dL (3.4-5.0) L 09/14/16 04:37 Globulin 3.5 g/dL (2.5-4.5) 09/14/16 04:37 Albumin/Globulin Ratio 0.7 Ratio (1.1-2.1) L 09/14/16 04:37 Specimen Type Catherized urine 09/12/16 22:41 Urine Color Yellow (YELLOW) 09/12/16 22:41 Urine Appearance Cloudy (CLEAR) 09/12/16 22:41 Urine pH 7.0 (5.0 - 8.0) 09/12/16 22:41 Ur Specific [place] 1.010 (1.000-1.030) 09/12/16 22:41 Urine Protein 1+ (NEGATIVE) 09/12/16 22:41 Urine Glucose (UA) Negative (NEGATIVE) 09/12/16 22:41 Urine Ketones Negative (NEGATIVE) 09/12/16 22:41 Urine Occult Blood 3+ (NEGATIVE) 09/12/16 22:41 Urine Nitrite Positive (NEGATIVE) 09/12/16 22:41 Urine Bilirubin Negative (NEGATIVE) 09/12/16 22:41 Urine Urobilinogen Normal (NORMAL) 09/12/16 22:41 Ur Leukocyte Esterase 1+ (NEGATIVE) 09/12/16 22:41 Urine RBC 0-3 /HPF (NEGATIVE) 09/12/16 22:41 Urine WBC 6-8 /HPF (NEGATIVE) 09/12/16 22:41 Ur Squamous Epith Cells Rare /HPF (NEGATIVE) 09/12/16 22:41 Urine Bacteria 2+ /HPF (NEGATIVE) 09/12/16 22:41 Ur Culture Indicated? Yes/culture set up 09/12/16 22:41 Staph aureus (PCR) Negative (NEGATIVE) 09/13/16 11:10 MRSA (PCR) Negative (NEGATIVE) 09/13/16 11:10 Blood Type B POSITIVE 09/12/16 19:45 Antibody Screen Negative 09/12/16 19:45 Crossmatch See Detail 09/12/16 19:45 - Plan (1) Closed right hip fracture Status: Acute Qualifiers: Encounter type: E Fracture healing: F Plan: ORTHO POST OP CARE, PAIN CONTROL (2) CHF (congestive heart failure) Status: Chronic Qualifiers: Congestive heart failure type: C Congestive heart failure chronicity: C Plan: CXR ON ADMISSION, EKG. 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 MONITOR
[2016-09-15] MEDS: SNACK - Diabetic Appropriate PO SCH (21:13)
[2016-09-16] MEDS ORDERED: NS 250 ML IV 250 ML IV ONE (00:05)
[2016-09-16 06:12] LABS: BLOOD UREA NITROGEN 14 mg/dL (7-18); CALCIUM 8.1 mg/dL (8.5-10.1); CARBON DIOXIDE 28.4 mmol/L (21-32); CHLORIDE 106 mmol/L (98-107); CREATININE 1.12 mg/dL (0.55-1.02); GLUCOSE 95 mg/dL (65-99); SODIUM 141 mmol/L (136-145); eGFR BLACK RACES 59 (>60); eGFR NON BLACK RACES 49 (>60)
[2016-09-16 06:23] LABS: BASOPHILS % (AUTO) 0.2 % (0.2-1.0); EOSINOPHILS % (AUTO) 0.5 % (0.9-2.9); HEMATOCRIT 28.5 % (36.0-47.0); HEMOGLOBIN 9.7 g/dL (12.0-16.0); LYMPHOCYTES # (AUTO) 1.9 X10^3/uL (1.3-2.9); LYMPHOCYTES % (AUTO) 18.5 % (21.0-51.0); MEAN CORPUSCULAR HEMOGLOBIN 30.4 pg (27.0-34.0); MEAN CORPUSCULAR VOLUME 89.3 fL (80.0-100.0); MEAN PLATELET VOLUME 7.5 fL (7.4-11.0); MONOCYTES # (AUTO) 1.1 x10^3/uL (0.3-0.8); MONOCYTES % (AUTO) 10.9 % (0.0-13.0); NEUTROPHILS # (AUTO) 7.1 x10^3/uL (2.2-4.8); NEUTROPHILS % (AUTO) 69.9 % (42.0-75.0); PLATELET COUNT 218 X10^3/uL (150.0-450.0); RED CELL DISTRIBUTION WIDTH 13.9 % (11.6-16.5); WHITE BLOOD COUNT 10.2 X10^3/uL (3.6-10.0)
[2016-09-16] MEDS: NS 1000 ML 1,000 ML IV SCH ×2 (06:23→09:25)
[2016-09-16] MEDS ORDERED: GLUCOPHAGE ONE (08:22)
[2016-09-16] MEDS: PROTONIX INJ 40 MG VIAL IVP SCH (09:20)
[2016-09-16] MEDS: FOLIC ACID TAB 1 MG PO SCH (09:20)
[2016-09-16] MEDS: MERREM VIAL 1,000 MG in NS 100 ML IV 100 ML IV SCH ×2 (09:20→20:55)
[2016-09-16] MEDS: M.S. CONTIN 30 MG EXTENDED RELEASE PO SCH ×2 (09:20→20:54)
[2016-09-16] MEDS: CELEXA PO SCH (09:20)
[2016-09-16] MEDS: SYNTHROID 50 mcg TAB PO SCH (09:20)
[2016-09-16] MEDS: COLACE CAP 100 MG PO SCH ×2 (09:20→20:54)
[2016-09-16] MEDS: LOVENOX INJ 40 MG SYR SC SCH (09:21)
[2016-09-16] MEDS: TAB-A-VITE PO SCH (09:21)
[2016-09-16] MEDS: GLUCOPHAGE PO SCH (09:21)
[2016-09-16] MEDS: SENOKOT PO SCH ×2 (09:21→20:54)
[2016-09-16] MEDS: GLUCOTROL PO SCH (09:21)
--- NOTE | 2016-09-16 10:44 | PCM.PROG ---
Progress Note - Progress Note for Day of Date: 09/15/16 (POD 1) - Subjective Subjective: RT hip gamma nail pod 1. doing well. sitting in bed. minimal pain. vitals stable. dressing clean and dry. was able to get up and walk today with PT. - Past Medical Family Social History Past Med/Fam/Surg Hx: No changes since H&P Allergies: Allergies Penicillins Allergy (Unknown, Verified 09/12/16 19:05) - Review of Systems ROS: No change since H&P - Vital Signs and I&O's Vital Signs: Temperature 98.5 F Pulse Rate [Right Brachial] 68 Pulse Rate [Left Brachial] 74 Pulse Rate 88 Respiratory Rate 18 Blood Pressure [Right Arm] 139/62 Blood Pressure [Left Arm] 133/56 Blood Pressure 188/80 O2 Sat by Pulse Oximetry 97 Intake and Output: Intake & Output 09/13/16 09/14/16 09/15/16 09/16/16 11:59 11:59 11:59 11:59 Intake Total 200 3168 003 0704 Output Total 475 2400 1000 1100 [facility] -367 -1152 -168 -87 - Physical Exam Oriented: Normal Eyes: Normal Ear: Normal Nose: Normal Throat: Normal Respiratory: Normal Cardiovascular: Normal : Normal Auscultation: Bowel Sounds: Normal Tenderness: Normal Skin: Wound (RIGHT HIP CLEAN INTACT DRESSING), Bruising (RIGHT THIGH, RIGHT HIP) Musculoskeletal: Hip (RIGHT THIGH) Psychiatric: Normal Mood Description: Calm Affect: Angry Speech Pattern: Clear, Appropriate - Laboratory and Diagnostics Result Diagrams: 09/16/16 04:50 09/16/16 04:50 Labs: 09/12/16 22:41 Urine,Catheterized Urine Culture - Final Escherichia Coli Laboratory WBC 10.2 X10^3/uL (3.6-10.0) H 09/16/16 04:50 RBC 3.20 X10^6/uL (3.5-5.4) L 09/16/16 04:50 Hgb 9.7 g/dL (12.0-16.0) L 09/16/16 04:50 Hct 28.5 % (36.0-47.0) L 09/16/16 04:50 MCV 89.3 fL (80.0-100.0) 09/16/16 04:50 MCH 30.4 pg (27.0-34.0) 09/16/16 04:50 MCHC 34.0 g/dL (33.0-35.0) 09/16/16 04:50 RDW 13.9 % (11.6-16.5) 09/16/16 04:50 Plt Count 218 X10^3/uL (150.0-450.0) 09/16/16 04:50 Plt Count Comment Adequate (ADEQUATE) 09/12/16 19:20 MPV 7.5 fL (7.4-11.0) 09/16/16 04:50 Neut % 69.9 % (42.0-75.0) 09/16/16 04:50 Lymph % 18.5 % (21.0-51.0) L 09/16/16 04:50 [place] % 10.9 % (0.0-13.0) 09/16/16 04:50 Eos % 0.5 % (0.9-2.9) L 09/16/16 04:50 Baso % 0.2 % (0.2-1.0) 09/16/16 04:50 Neut # 7.1 x10^3/uL (2.2-4.8) H 09/16/16 04:50 Lymph # 1.9 X10^3/uL (1.3-2.9) 09/16/16 04:50 [place] # 1.1 x10^3/uL (0.3-0.8) H 09/16/16 04:50 Eos # 0.0 x10^3/uL (0.0-0.2) 09/16/16 04:50 Baso # 0.0 X10^3/uL (0.0-0.1) 09/16/16 04:50 Absolute Nucleated RBC 0.1 /100WBC 09/16/16 04:50 Total Counted 100 09/12/16 19:20 Neutrophils % (Manual) 86 % (39-76) H 09/12/16 19:20 Band Neutrophils % 4 % (0-10) 09/12/16 19:20 Lymphocytes % (Manual) 7 % (13-43) L 09/12/16 19:20 Monocytes % (Manual) 2 % (4-9) L 09/12/16 19:20 Eosinophils % (Manual) 1 % (0-6) 09/12/16 19:20 Plt Morphology Comment Normal (NORMAL) 09/12/16 19:20 RBC Morphology Normal (NORMAL) 09/12/16 19:20 INR Target Range - 09/12/16 19:20 INR 0.99 (0.8-1.3) 09/12/16 19:20 PTT 28.5 SECONDS (22.9-36.5) 09/12/16 19:20 PTT Comment - 09/12/16 19:20 Sodium 141 mmol/L (136-145) 09/16/16 04:50 Corrected Sodium TNP 09/16/16 04:50 Potassium 4.2 mmol/L (3.5-5.1) 09/16/16 04:50 Chloride 106 mmol/L (98-107) 09/16/16 04:50 Carbon Dioxide 28.4 mmol/L (21-32) 09/16/16 04:50 BUN 14 mg/dL (7-18) 09/16/16 04:50 Creatinine 1.12 mg/dL (0.55-1.02) H 09/16/16 04:50 Est GFR (MDRD) Af Amer 59 (>60) 09/16/16 04:50 Est GFR (MDRD) Non-Af 49 (>60) L 09/16/16 04:50 Glucose 95 mg/dL (65-99) 09/16/16 04:50 Calcium 8.1 mg/dL (8.5-10.1) L 09/16/16 04:50 Corrected Calcium 9.4 mg/dL (8.5-10.1) 09/14/16 04:37 Total Bilirubin 0.70 mg/dL (0.2-1.0) 09/14/16 04:37 AST 15 Units/L (15-37) 09/14/16 04:37 ALT 14 Units/L (12-78) 09/14/16 04:37 Alkaline Phosphatase 88 Units/L (46-116) 09/14/16 04:37 Total Protein 6.0 g/dL (6.4-8.2) L 09/14/16 04:37 Albumin 2.5 g/dL (3.4-5.0) L 09/14/16 04:37 Globulin 3.5 g/dL (2.5-4.5) 09/14/16 04:37 Albumin/Globulin Ratio 0.7 Ratio (1.1-2.1) L 09/14/16 04:37 Specimen Type Catherized urine 09/12/16 22:41 Urine Color Yellow (YELLOW) 09/12/16 22:41 Urine Appearance Cloudy (CLEAR) 09/12/16 22:41 Urine pH 7.0 (5.0 - 8.0) 09/12/16 22:41 Ur Specific [place] 1.010 (1.000-1.030) 09/12/16 22:41 Urine Protein 1+ (NEGATIVE) 09/12/16 22:41 Urine Glucose (UA) Negative (NEGATIVE) 09/12/16 22:41 Urine Ketones Negative (NEGATIVE) 09/12/16 22:41 Urine Occult Blood 3+ (NEGATIVE) 09/12/16 22:41 Urine Nitrite Positive (NEGATIVE) 09/12/16 22:41 Urine Bilirubin Negative (NEGATIVE) 09/12/16 22:41 Urine Urobilinogen Normal (NORMAL) 09/12/16 22:41 Ur Leukocyte Esterase 1+ (NEGATIVE) 09/12/16 22:41 Urine RBC 0-3 /HPF (NEGATIVE) 09/12/16 22:41 Urine WBC 6-8 /HPF (NEGATIVE) 09/12/16 22:41 Ur Squamous Epith Cells Rare /HPF (NEGATIVE) 09/12/16 22:41 Urine Bacteria 2+ /HPF (NEGATIVE) 09/12/16 22:41 Ur Culture Indicated? Yes/culture set up 09/12/16 22:41 Staph aureus (PCR) Negative (NEGATIVE) 09/13/16 11:10 MRSA (PCR) Negative (NEGATIVE) 09/13/16 11:10 Blood Type B POSITIVE 09/12/16 19:45 Antibody Screen Negative 09/12/16 19:45 Crossmatch See Detail 09/12/16 19:45 - Plan (1) Closed right hip fracture Status: Acute Qualifiers: Encounter type: subsequent encounter Fracture healing: F Plan: Pain control. WB as tolerated with PT. Can be discharged from Ortho side when medically fit. Follow up in office 2 weeks.
--- NOTE | 2016-09-16 13:45 | PCM.PROG ---
Progress Note - Progress Note for Day of Date: 09/16/16 - Subjective Subjective: S/P RIGHT HIP. doing well. sitting in bed. minimal pain. vitals stable. dressing clean and dry. was able to get up and walk today with PT. CONTINUE IV ATBX FOR UTI, REPEAT AM LABS - Past Medical Family Social History Past Med/Fam/Surg Hx: No changes since H&P Allergies: Allergies Penicillins Allergy (Unknown, Verified 09/12/16 19:05) - Review of Systems ROS: No change since H&P - Vital Signs and I&O's Vital Signs: Temperature 98.9 F Pulse Rate [Right Brachial] 68 Pulse Rate [Left Brachial] 67 Pulse Rate 88 Respiratory Rate 18 Blood Pressure [Right Arm] 139/62 Blood Pressure [Left Arm] 187/74 Blood Pressure 188/80 O2 Sat by Pulse Oximetry 94 Intake and Output: Intake & Output 09/14/16 09/15/16 09/16/16 09/17/16 11:59 11:59 11:59 11:59 Intake Total 8559 668 5315 Output Total 2400 1000 1100 Balance -1152 -168 -87 - Physical Exam Oriented: Normal Eyes: Normal Ear: Normal Nose: Normal Throat: Normal Respiratory: Normal Cardiovascular: Normal : Normal Auscultation: Bowel Sounds: Normal Tenderness: Normal Skin: Wound (RIGHT HIP CLEAN INTACT DRESSING), Bruising (RIGHT THIGH, RIGHT HIP) Musculoskeletal: Hip (RIGHT THIGH) Psychiatric: Normal Mood Description: Calm Affect: Angry Speech Pattern: Clear, Appropriate - Laboratory and Diagnostics Result Diagrams: 09/16/16 04:50 09/16/16 04:50 Labs: 09/12/16 22:41 Urine,Catheterized Urine Culture - Final Escherichia Coli Laboratory WBC 10.2 X10^3/uL (3.6-10.0) H 09/16/16 04:50 RBC 3.20 X10^6/uL (3.5-5.4) L 09/16/16 04:50 Hgb 9.7 g/dL (12.0-16.0) L 09/16/16 04:50 Hct 28.5 % (36.0-47.0) L 09/16/16 04:50 MCV 89.3 fL (80.0-100.0) 09/16/16 04:50 MCH 30.4 pg (27.0-34.0) 09/16/16 04:50 MCHC 34.0 g/dL (33.0-35.0) 09/16/16 04:50 RDW 13.9 % (11.6-16.5) 09/16/16 04:50 Plt Count 218 X10^3/uL (150.0-450.0) 09/16/16 04:50 Plt Count Comment Adequate (ADEQUATE) 09/12/16 19:20 MPV 7.5 fL (7.4-11.0) 09/16/16 04:50 Neut % 69.9 % (42.0-75.0) 09/16/16 04:50 Lymph % 18.5 % (21.0-51.0) L 09/16/16 04:50 [place] % 10.9 % (0.0-13.0) 09/16/16 04:50 Eos % 0.5 % (0.9-2.9) L 09/16/16 04:50 Baso % 0.2 % (0.2-1.0) 09/16/16 04:50 Neut # 7.1 x10^3/uL (2.2-4.8) H 09/16/16 04:50 Lymph # 1.9 X10^3/uL (1.3-2.9) 09/16/16 04:50 [place] # 1.1 x10^3/uL (0.3-0.8) H 09/16/16 04:50 Eos # 0.0 x10^3/uL (0.0-0.2) 09/16/16 04:50 Baso # 0.0 X10^3/uL (0.0-0.1) 09/16/16 04:50 Absolute Nucleated RBC 0.1 /100WBC 09/16/16 04:50 Total Counted 100 09/12/16 19:20 Neutrophils % (Manual) 86 % (39-76) H 09/12/16 19:20 Band Neutrophils % 4 % (0-10) 09/12/16 19:20 Lymphocytes % (Manual) 7 % (13-43) L 09/12/16 19:20 Monocytes % (Manual) 2 % (4-9) L 09/12/16 19:20 Eosinophils % (Manual) 1 % (0-6) 09/12/16 19:20 Plt Morphology Comment Normal (NORMAL) 09/12/16 19:20 RBC Morphology Normal (NORMAL) 09/12/16 19:20 INR Target Range - 09/12/16 19:20 INR 0.99 (0.8-1.3) 09/12/16 19:20 PTT 28.5 SECONDS (22.9-36.5) 09/12/16 19:20 PTT Comment - 09/12/16 19:20 Sodium 141 mmol/L (136-145) 09/16/16 04:50 Corrected Sodium TNP 09/16/16 04:50 Potassium 4.2 mmol/L (3.5-5.1) 09/16/16 04:50 Chloride 106 mmol/L (98-107) 09/16/16 04:50 Carbon Dioxide 28.4 mmol/L (21-32) 09/16/16 04:50 BUN 14 mg/dL (7-18) 09/16/16 04:50 Creatinine 1.12 mg/dL (0.55-1.02) H 09/16/16 04:50 Est GFR (MDRD) Af Amer 59 (>60) 09/16/16 04:50 Est GFR (MDRD) Non-Af 49 (>60) L 09/16/16 04:50 Glucose 95 mg/dL (65-99) 09/16/16 04:50 Calcium 8.1 mg/dL (8.5-10.1) L 09/16/16 04:50 Corrected Calcium 9.4 mg/dL (8.5-10.1) 09/14/16 04:37 Total Bilirubin 0.70 mg/dL (0.2-1.0) 09/14/16 04:37 AST 15 Units/L (15-37) 09/14/16 04:37 ALT 14 Units/L (12-78) 09/14/16 04:37 Alkaline Phosphatase 88 Units/L (46-116) 09/14/16 04:37 Total Protein 6.0 g/dL (6.4-8.2) L 09/14/16 04:37 Albumin 2.5 g/dL (3.4-5.0) L 09/14/16 04:37 Globulin 3.5 g/dL (2.5-4.5) 09/14/16 04:37 Albumin/Globulin Ratio 0.7 Ratio (1.1-2.1) L 09/14/16 04:37 Specimen Type Catherized urine 09/12/16 22:41 Urine Color Yellow (YELLOW) 09/12/16 22:41 Urine Appearance Cloudy (CLEAR) 09/12/16 22:41 Urine pH 7.0 (5.0 - 8.0) 09/12/16 22:41 Ur Specific [place] 1.010 (1.000-1.030) 09/12/16 22:41 Urine Protein 1+ (NEGATIVE) 09/12/16 22:41 Urine Glucose (UA) Negative (NEGATIVE) 09/12/16 22:41 Urine Ketones Negative (NEGATIVE) 09/12/16 22:41 Urine Occult Blood 3+ (NEGATIVE) 09/12/16 22:41 Urine Nitrite Positive (NEGATIVE) 09/12/16 22:41 Urine Bilirubin Negative (NEGATIVE) 09/12/16 22:41 Urine Urobilinogen Normal (NORMAL) 09/12/16 22:41 Ur Leukocyte Esterase 1+ (NEGATIVE) 09/12/16 22:41 Urine RBC 0-3 /HPF (NEGATIVE) 09/12/16 22:41 Urine WBC 6-8 /HPF (NEGATIVE) 09/12/16 22:41 Ur Squamous Epith Cells Rare /HPF (NEGATIVE) 09/12/16 22:41 Urine Bacteria 2+ /HPF (NEGATIVE) 09/12/16 22:41 Ur Culture Indicated? Yes/culture set up 09/12/16 22:41 Staph aureus (PCR) Negative (NEGATIVE) 09/13/16 11:10 MRSA (PCR) Negative (NEGATIVE) 09/13/16 11:10 Blood Type B POSITIVE 09/12/16 19:45 Antibody Screen Negative 09/12/16 19:45 Crossmatch See Detail 09/12/16 19:45 - Plan (1) UTI (urinary tract infection) Status: Acute Qualifiers: Urinary tract infection type: U Hematuria presence: H Indwelling urinary catheter type: I Encounter type: E Plan: MEROPENEM, CULTURE + ECOLI. MONITOR, WILL CONTINUE IV ATBX FOR 2-3 ADDITONAL DAYS PRIOR TO DC (2) Closed right hip fracture Status: Acute Qualifiers: Encounter type: subsequent encounter Fracture healing: F Plan: Pain control. WB as tolerated with PT. Can be discharged from Ortho side when medically fit. Follow up in office 2 weeks. (3) CHF (congestive heart failure) Status: Chronic Qualifiers: Congestive heart failure type: C Congestive heart failure chronicity: C Plan: CXR ON ADMISSION, EKG. 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
[2016-09-16] MEDS: MORPHINE SULFATE INJ 4 MG IVP PRN (17:40)
[2016-09-16] MEDS: SNACK - Diabetic Appropriate PO SCH (21:01)
[2016-09-17 06:16] LABS: BASOPHILS % (AUTO) 0.6 % (0.2-1.0); EOSINOPHILS # (AUTO) 0.1 x10^3/uL (0.0-0.2); EOSINOPHILS % (AUTO) 1.6 % (0.9-2.9); HEMATOCRIT 26.7 % (36.0-47.0); HEMOGLOBIN 9.2 g/dL (12.0-16.0); LYMPHOCYTES % (AUTO) 27.8 % (21.0-51.0); MEAN CORPUSCULAR HEMOGLOBIN 30.9 pg (27.0-34.0); MEAN CORPUSCULAR HGB CONC 34.4 g/dL (33.0-35.0); MEAN CORPUSCULAR VOLUME 89.9 fL (80.0-100.0); MEAN PLATELET VOLUME 7.9 fL (7.4-11.0); MONOCYTES # (AUTO) 0.8 x10^3/uL (0.3-0.8); MONOCYTES % (AUTO) 10.7 % (0.0-13.0); NEUTROPHILS # (AUTO) 4.4 x10^3/uL (2.2-4.8); NEUTROPHILS % (AUTO) 59.3 % (42.0-75.0); PLATELET COUNT 211 X10^3/uL (150.0-450.0); RED BLOOD COUNT 2.97 X10^6/uL (3.5-5.4); WHITE BLOOD COUNT 7.4 X10^3/uL (3.6-10.0)
[2016-09-17 06:41] LABS: BLOOD UREA NITROGEN 18 mg/dL (7-18); CALCIUM 8.2 mg/dL (8.5-10.1); CARBON DIOXIDE 28.9 mmol/L (21-32); CHLORIDE 107 mmol/L (98-107); CREATININE 1.17 mg/dL (0.55-1.02); GLUCOSE 86 mg/dL (65-99); SODIUM 141 mmol/L (136-145); eGFR BLACK RACES 56 (>60); eGFR NON BLACK RACES 47 (>60)
[2016-09-17] MEDS: NS 1000 ML 1,000 ML IV SCH (07:33)
[2016-09-17] MEDS ORDERED: GLUCOPHAGE ONE (08:44)
[2016-09-17] MEDS: MERREM VIAL 1,000 MG in NS 100 ML IV 100 ML IV SCH (09:26)
[2016-09-17] MEDS: FOLIC ACID TAB 1 MG PO SCH (09:27)
[2016-09-17] MEDS: SYNTHROID 50 mcg TAB PO SCH (09:27)
[2016-09-17] MEDS: COLACE CAP 100 MG PO SCH (09:27)
[2016-09-17] MEDS: PROTONIX INJ 40 MG VIAL IVP SCH (09:27)
[2016-09-17] MEDS: M.S. CONTIN 30 MG EXTENDED RELEASE PO SCH (09:27)
[2016-09-17] MEDS: TAB-A-VITE PO SCH (09:27)
[2016-09-17] MEDS: GLUCOTROL PO SCH (09:28)
[2016-09-17] MEDS: SENOKOT PO SCH (09:28)
[2016-09-17] MEDS: CELEXA PO SCH (09:28)
[2016-09-17] MEDS: GLUCOPHAGE PO SCH (09:30)
[2016-09-17] MEDS: LOVENOX INJ 40 MG SYR SC SCH (10:16)
[2016-09-17 12:23] VITALS: BP 194/83
== END 2016-09-17 13:25 | DRG 536 ==
LOC: MED/SURG 18:36
PROVIDERS: ADMIT Internal Medicine; ATTEND Internal Medicine
PROC: 30233N1 Transfusion of Nonautologous Red Blood Cells into Peripheral Vein, Percutaneous Approach (ICD-10-PCS; 2015-09-14)
PROC: 0QS604Z Reposition Right Upper Femur with Internal Fixation Device, Open Approach (ICD-10-PCS; principal; 2016-09-14 08:30)
PROC: 30233N1 Transfusion of Nonautologous Red Blood Cells into Peripheral Vein, Percutaneous Approach (ICD-10-PCS; 2016-09-16)
DX: S72.091A Other fracture of head and neck of right femur, initial encounter for closed fracture (principal); N39.0 Urinary tract infection, site not specified; W18.39XA Other fall on same level, initial encounter; Y92.018 Other place in single-family (private) house as the place of occurrence of the external cause; M13.89 Other specified arthritis, multiple sites; I10 Essential (primary) hypertension; E11.65 Type 2 diabetes mellitus with hyperglycemia; K21.9 Gastro-esophageal reflux disease without esophagitis; M47.899 Other spondylosis, site unspecified; D72.828 Other elevated white blood cell count; M85.88 Other specified disorders of bone density and structure, other site; B96.29 Other Escherichia coli [E. coli] as the cause of diseases classified elsewhere; D64.89 Other specified anemias; R94.4 Abnormal results of kidney function studies; R26.89 Other abnormalities of gait and mobility
CPT/HCPCS: 36415; 36430; 62326; 71010; 73501; 73521; 76000; 80048; 80053; 81001; 85025; 85610; 85730; 86850; 86900; 86901; 86922; 87086; 87088; 87186; 87641; 93005; 93010; 94762; 97535; 99100; A4216; A4222; C9113; P9016; S0020; S0181; J0360; J0690; J1170; J1650; J1815; J1956; J2185; J2270; J2405; J2710; J2795; J3010; J3490; J7120